=== PATIENT | male | born 2000 | race Caucasian/White ===

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

== ENCOUNTER 2023-10-07 06:52 | Day surgery (SDC) | payer BC | END 2023-10-07 09:00 | disposition home or self-care (01) | LOC: CATHEP 06:52 | PROVIDERS: ATTEND Internal Medicine Clinical Cardiac Electrophysiology | DX: R55 Syncope and collapse | CPT/HCPCS: 80053; 84443; 93660 ==